=== PATIENT | male | born 1935 | race Caucasian/White ===

== ENCOUNTER 2018-03-02 13:07 | Emergency (ER) | payer OTHER ==
[~2018-03-02] VITALS: Ht 182.9 cm; Wt 106.0 kg
[~2018-03-02 13:07] MED LIST: AMLO-110 PO; ASPI-319 PO; ATV1 PO; CLR10 PO; DIPH-416 PO; FLEC50TA20 PO; LVT/20 PO; NEOM1SOL8 OT; PSYL58.69 PO; SIMV20TA2 PO
[2018-03-02 13:10] VITALS: Ht 182.9 cm; Wt 106.0 kg
[2018-03-02] MEDS ORDERED: SODIUM CHLORIDE 0.9% 1000ML 500 ML IV STA (13:34)
--- NOTE | 2018-03-02 13:43 | EMERGENCY ROOM VISIT NOTE ---
History Report prepared by Moisés: Jesus Walters Under the Supervision of: Dr. Freeman Buchanan M.D. First contact with patient: 13:27 Chief Complaint: CARDIAC ASSESSMENT Stated Complaint: HEART ARRYTHMIA History of Present Illness The patient is an 82 year old male who presents to the Emergency Room with complaints of persistent shortness of breath, which began this morning several hours ago. The patient states that he first noticed the shortness of breath this morning when he walked up a flight of 12 steps in his house. He did not experience any chest pain. The patient notes that he does have a history of atrial fibrillation, which he has had for 15 years. He adds that he can usually feel when the heart goes into an irregular rhythm, and then can feel the rhythm resolve on its own. He did not feel this today. He had his last episode of atrial fibrillation 18 months ago. The patient has no history of blood clots, but does note that he took a 300 mile car trip to [place] last weekend. He denies any recent cold symptoms such as cough, congestion, fevers, or vomiting. Source of History: patient Onset: This morning, several hours ago Position: chest Quality: other (SOB) Timing: other (Persistent) Modifying Factors (Worsening): exertion (walking up steps precipitated symptoms) Associated Symptoms: No fevers, No cough, No chest pain, No vomiting Review of Systems See HPI for pertinent positives & negatives. A total of 10 systems reviewed and were otherwise negative. Past Medical & Surgical Medical Problems: (1) Atrial fibrillation Atrial fibrillation Family History Omitted secondary to patient age. Social History Smoking Status: Former Smoker Drug Use: none Marital Status: Housing Status: lives with significant other Current/Historical Medications Scheduled Acetaminophen (Tylenol), 650 MG PO HS Amlodipine (Norvasc), 5 MG PO HS Apixaban (Eliquis), 5 MG PO BID Aspirin Enteric Coated (Ecotrin Or Generic), 81 MG PO HS Desonide (Desonide), 1 APPLN TOP BID Flecainide (Tambocor), 50 MG PO BID Lorazepam (Ativan *), 1 MG PO HS PRN Jkjbtwkm-Iimeqscgd-Wl (Otic) (Antibiotic Ear), 3-4 DROP OT QAM Simvastatin (Zocor), 20 MG PO QPM Scheduled PRN Diphenoxylate/Atropine (Lomotil), 2 TAB PO DAILY PRN for Diarrhea Psyllium (Metamucil Powder), 1 PACK PO DAILY PRN Allergies Coded Allergies: No Known Allergies (Verified , 03/02/18) Physical Exam Vital Signs Date Time Temp Pulse Resp B/P (MAP) Pulse Ox O2 Delivery O2 Flow Rate FiO2 03/02/18 18:30 36.4 94 24 133/65 94 03/02/18 17:50 86 03/02/18 15:45 75 21 110/67 94 03/02/18 14:34 95 Room Air 03/02/18 14:08 95 Room Air 03/02/18 13:42 86 03/02/18 13:10 36.4 74 20 126/71 95 Room Air Physical Exam GENERAL: Patient is in no acute distress. HEENT: No acute trauma, normocephalic atraumatic, mucous membranes moist, no nasal congestion, no scleral icterus. NECK: No stridor, no adenopathy, no meningismus, trachea is midline. LUNGS: Clear to auscultation bilaterally, no wheeze, no rhonchi, breath sounds equal. HEART: Irregular rhythm with a normal rate. No murmurs. ABDOMEN: Soft, nontender, bowel sounds positive, no hernias, no peritonitis. EXTREMITIES: No cyanosis or edema, full range of motion of all the joints without pain or difficulty, no signs for acute trauma. NEUROLOGIC: Oriented x 3, no acute motor or sensory deficits, no focal weakness. SKIN: No rash, no jaundice, no diaphoresis. Medical Decision & Procedures ER Provider Diagnostic Interpretation: Radiology results as stated below per my review and radiologist interpretation: CHEST ONE VIEW PORTABLE CLINICAL HISTORY: EVALUATE ALTERED MENTAL STATUS/WEAKNESS dyspnea COMPARISON STUDY: 02/17/2013 FINDINGS: Moderate cardiomegaly. Prominent pulmonary vasculature. Slight blunting right lateral gastric angle. IMPRESSION: Mild congestive heart failure The above report was generated using voice recognition software. It may contain grammatical, syntax or spelling errors. Electronically signed by: Myles Albrecht M.D. 03/02/2018 2:03 PM Dictated Date/Time: 03/02/2018 2:00 PM Laboratory Results 03/02/18 13:40 Red Blood Count 4.48, Mean Corpuscular Volume 94.9, Mean Corpuscular Hemoglobin 34.6, Mean Corpuscular Hemoglobin Concent 36.5, Mean Platelet Volume 11.1, Neutrophils (%) (Auto) 74.1, Lymphocytes (%) (Auto) 15.2, Monocytes (%) (Auto) 10.0, Eosinophils (%) (Auto) 0.2, Basophils (%) (Auto) 0.2, Neutrophils # (Auto ) 6.40, Lymphocytes # (Auto) 1.32, Monocytes # (Auto) 0.87, Eosinophils # (Auto ) 0.02, Basophils # (Auto) 0.02 03/02/18 13:40 Test 03/02/18 13:40 03/02/18 13:51 03/02/18 14:30 White Blood Count 8.66 K/uL (4.8-10.8) Red Blood Count 4.48 M/uL (4.7-6.1) Hemoglobin 15.5 g/dL (14.0-18.0) Hematocrit 42.5 % (42-52) Mean Corpuscular Volume 94.9 fL (80-100) Mean Corpuscular Hemoglobin 34.6 pg (25-34) Mean Corpuscular Hemoglobin Concent 36.5 g/dl (32-36) Platelet Count 210 K/uL (130-400) Mean Platelet Volume 11.1 fL (7.4-10.4) Neutrophils (%) (Auto) 74.1 % Lymphocytes (%) (Auto) 15.2 % Monocytes (%) (Auto) 10.0 % Eosinophils (%) (Auto) 0.2 % Basophils (%) (Auto) 0.2 % Neutrophils # (Auto) 6.40 K/uL (1.4-6.5) Lymphocytes # (Auto) 1.32 K/uL (1.2-3.4) Monocytes # (Auto) 0.87 K/uL (0.11-0.59) Eosinophils # (Auto) 0.02 K/uL (0-0.5) Basophils # (Auto) 0.02 K/uL (0-0.2) RDW Standard Deviation 43.4 fL (36.4-46.3) RDW Coefficient of Variation 12.7 % (11.5-14.5) Immature Granulocyte % (Auto) 0.3 % Immature Granulocyte # (Auto) 0.03 K/uL (0.00-0.02) Prothrombin Time 10.5 SECONDS (9.0-12.0) Prothromb Time International Ratio 1.0 (0.9-1.1) Activated Partial Thromboplast Time 27.6 SECONDS (21.0-31.0) Partial Thromboplastin Ratio 1.1 Anion Gap 9.0 mmol/L (3-11) Est Creatinine Clear Calc Drug Dose 64.5 ml/min Estimated GFR () 69.3 Estimated GFR (Non- 59.8 BUN/Creatinine Ratio 15.8 (10-20) Calcium Level 8.8 mg/dl (8.5-10.1) Magnesium Level 2.2 mg/dl (1.8-2.4) Total Bilirubin 0.7 mg/dl (0.2-1) Aspartate Amino Transf (AST/SGOT) 23 U/L (15-37) Alanine Aminotransferase (ALT/SGPT) 33 U/L (12-78) Alkaline Phosphatase 108 U/L (45-117) Troponin I < 0.015 ng/ml (0-0.045) Total Protein 7.7 gm/dl (6.4-8.2) Albumin 3.3 gm/dl (3.4-5.0) Globulin 4.4 gm/dl (2.5-4.0) Albumin/Globulin Ratio 0.8 (0.9-2) Thyroid Stimulating Hormone (TSH) 1.440 uIu/ml (0.300-4.500) Bedside D-Dimer 298 ng/mlFEU (0-450) Urine Color DK YELLOW Urine Appearance CLEAR (CLEAR) Urine pH 5.5 (4.5-7.5) Urine Specific [place] 1.018 (1.000-1.030) Urine Protein 1+ (NEG) Urine Glucose (UA) NEG (NEG) Urine Ketones TRACE (NEG) Urine Occult Blood NEG (NEG) Urine Nitrite NEG (NEG) Urine Bilirubin NEG (NEG) Urine Urobilinogen NEG (NEG) Urine Leukocyte Esterase SMALL (NEG) Urine WBC (Auto) 10-30 /hpf (0-5) Urine RBC (Auto) 0-4 /hpf (0-4) Urine Hyaline Casts (Auto) 10-30 /lpf (0-5) Urine Epithelial Cells (Auto) >30 /lpf (0-5) Urine Bacteria (Auto) NEG (NEG) Urine Renal Epithelial Cells 5-10 /lpf (0-5) Urine Mucus PRESENT (NONE PRSENT) Laboratory results reviewed by me. Medications Administered Medications (Trade) Dose Ordered Sig/Micheal Route Start Time Stop Time Status Last Admin Dose Admin Sodium Chloride 500 ml @ 999 mls/hr Q31M STAT IV 03/02/18 13:34 03/02/18 14:04 DC 03/02/18 14:00 999 MLS/HR Flecainide Acetate (Tambocor Tab) 150 mg NOW STAT PO 03/02/18 15:40 03/02/18 15:41 DC 03/02/18 16:04 150 MG Apixaban (Eliquis Tab) 5 mg NOW STAT PO 03/02/18 17:48 03/02/18 17:50 DC 03/02/18 18:14 5 MG ECG Per My Interpretation Indication: SOB/dyspnea Rate (beats per minute): 97 Rhythm: atrial fibrillation Findings: other (LVH present, No MARU) ED Course 1333: The patient was evaluated in room B9. A complete history and physical exam was performed. 1334: Ordered Sodium Chloride 500 mL @ 999 mL/hr IV. 1527: I updated the patient on the findings of his case at this time. 1537: I discussed the case with Dr. Curtis - Cardiology. He suggests giving the patient 150 mg of Flecainide orally, to see if his rhythm converts within 1 hour. If he converts, the patient may go home with cardiovascular follow-up. If he does not convert, then he should be started on ELIQUIS and he can then be sent home. 1540: Ordered Flecainide Acetate 150 mg PO. 1543: I updated the patient about the consult with Dr. Curtis. He is in agreement with the plan. 1713: It has been an hour since the patient had the Flecainide. He has NOT converted back to sinus rhythm at this time. He would like to wait another 30 minutes, because he does not want to have to take ELIQUIS. 1745: I checked on the patient at this time. Reevaluated the patient. Discussed results and discharge instructions: He will take a dosage of Eliquis. He verbalized understanding and agreement. The patient is ready for discharge. Medical Decision Differential Diagnosis includes; Atria fibrillation, atrial flutter, anemia, electrolyte imbalance, dehydration, renal failure, pulmonary embolism, pneumonia , and heart failure. There is no leukocytosis or concerning anemia. No significant electrolyte abnormality, kidney failure or hepatitis. The patient appears to be in a euthyroid state. EKG shows A. fib with LVH, the rate is controlled. Cardiac enzyme testing 1 is not consistent with acute cardiac injury. Chest film shows some possible mild CHF versus stable chronic findings, no pneumonia or pneumothorax. D-dimer testing returned negative. With a negative d-dimer and my low suspicion for PE, I will stop the workup for this diagnosis. I spoke with cardiology. They recommended a dose of oral flecainide. The patient was given 150 mg orally. He was watched for about another 2 hours and remained in A. fib. He remained stable. Cardiology recommended the patient be discharged on Eliquis. He was given a 5 mg dose here prior to discharge. He was given a prescription. He will be seeing cardiology tomorrow in the office for a recheck of his heart rhythm. If worsening, he can return. Medication Reconcilliation Current Medication List: was personally reviewed by me Blood Pressure Screening Patient's blood pressure: Normal blood pressure Consults Time Called: 1524 Consulting Physician: Dr. Curtis - Cardiology Returned Call: [phone] I discussed the case with Dr. Ever Oliver Cardiology. He suggests giving the patient 150 mg of Flecainide orally, to see if his rhythm converts within 1 hour. If he converts, the patient may go home with cardiovascular follow-up. If he does not convert, then he should be started on ELIQUIS and he can then be sent home. Impression Primary Impression: Atrial fibrillation Additional Impression: SOB (shortness of breath) Critical Care I have personally spent greater than 40 minutes of critical care time in the direct management of this patient. This includes bedside care, interpretation of diagnostic studies, and testing, discussion with consultants, patient, and family members, and other required patient management activities. This 40 minutes is in excess of all separately billable procedures. Scribe Attestation The scribe's documentation has been prepared under my direction and personally reviewed by me in its entirety. I confirm that the note above accurately reflects all work, treatment, procedures, and medical decision making performed by me. Departure Information Dispostion Home / Self-Care Prescriptions Apixaban (ELIQUIS) 5 Mg Tab 5 MG PO BID for 7 Days, #14 TAB Prov: Freeman Buchanan M.D. 03/02/18 Referrals Joseph Carrasquillo D.O. (PCP) Forms IMPORTANT VISIT INFORMATION Patient Instructions My [facility] Additional Instructions no flecanide tonight--start again tomorrow though start Eliquis 2x per day for now--next dose tomorrow am see cardiology tomorrow--call in the am for an appt return for worsening symptoms, worsening shortness of breath or chest pain no evidence for a blood clot today or for any heart attack Problem Qualifiers
[2018-03-02 13:57] LABS: BASO % 0.2 %; BASO ABS # 0.02 K/uL (0-0.2); EOS % 0.2 %; EOS ABS # 0.02 K/uL (0-0.5); HEMATOCRIT 42.5 % (42-52); HEMOGLOBIN 15.5 g/dL (14.0-18.0); IG# 0.03 K/uL (0.00-0.02); LYMPH % 15.2 %; LYMPH ABS # 1.32 K/uL (1.2-3.4); MEAN CELL VOLUME 94.9 fL (80-100); MEAN CORPUSCULAR HEMOGLOBIN 34.6 pg (25-34); MEAN CORPUSCULAR HGB CONC 36.5 g/dl (32-36); MEAN PLATELET VOLUME 11.1 fL (7.4-10.4); MONO ABS # 0.87 K/uL (0.11-0.59); NEUT % 74.1 %; PLATELET COUNT 210 K/uL (130-400); RED CELL DISTRIBUTION WIDTH CV 12.7 % (11.5-14.5); RED CELL DISTRIBUTION WIDTH SD 43.4 fL (36.4-46.3); WHITE BLOOD COUNT 8.66 K/uL (4.8-10.8)
--- NOTE | 2018-03-02 14:04 | DIAGNOSTIC IMAGING REPORT ---
CHEST ONE VIEW PORTABLE CLINICAL HISTORY: EVALUATE ALTERED MENTAL STATUS/WEAKNESS dyspnea COMPARISON STUDY: 02/17/2013 FINDINGS: Moderate cardiomegaly. Prominent pulmonary vasculature. Slight blunting right lateral gastric angle. IMPRESSION: Mild congestive heart failure The above report was generated using voice recognition software. It may contain grammatical, syntax or spelling errors. Electronically signed by: Myles Albrecht M.D. 03/02/2018 2:03 PM Dictated Date/Time: 03/02/2018 2:00 PM
[2018-03-02] MEDS ORDERED: ACET-1311 PO (14:06)
[2018-03-02] MEDS ORDERED: DESO0.0516 TOP (14:06)
[2018-03-02 14:13] LABS: PTT PATIENT 27.6 SECONDS (21.0-31.0)
[2018-03-02 14:22] LABS: ALBUMIN 3.3 gm/dl (3.4-5.0); ALKALINE PHOSPHATASE 108 U/L (45-117); ALT/SGPT 33 U/L (12-78); AST/SGOT 23 U/L (15-37); BLOOD UREA NITROGEN 18 mg/dl (7-18); CALCIUM 8.8 mg/dl (8.5-10.1); CARBON DIOXIDE 20 mmol/L (21-32); CREATININE 1.15 mg/dl (0.60-1.40); GLUCOSE 101 mg/dl (70-99); POTASSIUM 4.3 mmol/L (3.5-5.1); SODIUM 137 mmol/L (136-145); TOTAL PROTEIN 7.7 gm/dl (6.4-8.2)
[2018-03-02 14:34] VITALS: O2SAT 95
[2018-03-02] MEDS ORDERED: FLECAINIDE ACETATE 100 MG TAB PO STA (15:40)
[2018-03-02] MEDS ORDERED: APIXABAN 2.5 MG TAB PO STA (17:48)
[2018-03-02] MEDS ORDERED: APIX1TAB3 PO (17:52)
[2018-03-02 18:30] VITALS: BP 133/65; PULSE 94; TEMP 36.4; O2SAT 94
== END 2018-03-02 18:31 | disposition home or self-care (01) ==
LOC: C.EDB 13:08
DX: I48.91 Unspecified atrial fibrillation (principal); R06.02 Shortness of breath; Z87.891 Personal history of nicotine dependence; Z79.01 Long term (current) use of anticoagulants; Z79.899 Other long term (current) drug therapy

== ENCOUNTER → 2018-03-22 | Outpatient (CLI) | payer OTHER ==
[~2018-03-22] MED LIST changes: +ACET-1311 PO; -CLR10 PO; +DESO0.0516 TOP; +GADAVIST IV PRN; -LVT/20 PO
--- NOTE | 2018-03-22 15:36 | DIAGNOSTIC IMAGING REPORT ---
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 FINDINGS: Large [id number] individual small group instructor localizer images demonstrate no gross abnormality. There is no restricted diffusion to suggest acute or subacute infarction. Midline structures including the corpus callosum, brainstem, optic chiasm, pituitary and pineal glands appear unremarkable the sagittal T1 series. No cerebellar tonsillar herniation. Degenerative changes of the imaged cervical spine are noted. Moderate brain atrophy and ex vacuo ventriculomegaly without acute intracranial hemorrhage, midline shift, abnormal extra-axial collections, hydrocephalus or intracranial mass. Scattered foci of increased T2/FLAIR signal noted within the periventricular and subcortical white matter suggesting chronic microvascular ischemic changes. Major flow voids at the level of the skull base appear patent. Mastoid air cells are clear. Paranasal sinuses are also generally clear. There is thinning of the optic lenses bilaterally. Soft tissues and skull are within normal limits. Cisternal portions of the bilateral 5th nerves are within normal limits. 7th and 8th cranial nerves are within normal limits. Vascular loop of the left anterior inferior cerebellar artery extends approximately 50% into the left internal auditory canal, image 45 series 9 with minimal angulation of the adjacent 8th cranial nerve. No mass lesions identified within the cerebellar pontine angle or internal auditory canals. There is no abnormal intra-axial or extra-axial enhancement identified. IMPRESSION: 1. No acute intracranial abnormality identified. 2. Vascular loop of the left anterior inferior cerebellar artery extends approximately 50% into the left internal auditory canal. This finding has been reported to cause pulsatile tinnitus. Bilateral internal auditory canals are otherwise unremarkable without focal mass identified. 3. Atrophy with ex vacuo ventriculomegaly and chronic microvascular ischemic changes. The above report was generated using voice recognition software. It may contain grammatical, syntax or spelling errors. Electronically signed by: Cole Robertson M.D. 03/22/2018 3:35 PM Dictated Date/Time: 03/22/2018 3:23 PM
== END | disposition home or self-care (01) ==
LOC: C.MRI 13:33
PROVIDERS: ATTEND Physician Assistant
DX: H53.19 Other subjective visual disturbances (principal); H90.42 Sensorineural hearing loss, unilateral, left ear, with unrestricted hearing on the contralateral side

== ENCOUNTER 2020-10-30 16:25 | Observation (INO) ==
--- OUTSIDE RECORDS SUMMARY | 2020-10-30 16:27 | External Medical Summary | Continuity of Care Document ---
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) History of basal cell carcinoma (V10.83) (Z85.828) Dermatitis, seborrheic (690.10) (L21.9) Seborrheic dermatitis (690.10) (L21.9) H/O malignant neoplasm of skin (V10.83) (Z85.828) BCC (basal cell carcinoma) (173.91) (C44.91) 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) Seborrheic keratosis (702.19) (L82.1) SCC (squamous cell carcinoma) (173.92) (C44.92) Arthritis (716.90) (M19.90) Hyperlipidemia (272.4) (E78.5) Urinary incontinence (788.30) (R32) Gross hematuria (599.71) (R31.0) 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 REBEL Fleming Start: 07-Feb-2013 Refills: 0 Ketoconazole 2 % External Shampoo; APPLY DIRECTED A S NEEDED Susan Dozier Start: 13-Jul-2016 Quantity: 1 120 ML Bottle Refills: 6 Desonide 0.05 % External Ointment; APPLY SPARINGLY TO AFFECTED AREA(S) TWICE DAILY Susan Dozier 60 GM Tube Quantity: 1 Refills: 0 Ketoconazole 2 % External Shampoo; USE 2X/WEEK Dannielle Dozier 120 ML Bottle Quantity: 3 Refills: 3 Neomycin/Polymixin/Dexameth SUSP; prn , M.D. Refills: 0 Simvastatin 20 MG Oral Tablet; TAKE 1 TABLET DAILY. , M.D. Refills: 0 Lomotil 2.5-0.025 MG Oral Tablet; Take 1 tablet twice daily , M.D. Refills: 0 Ativan 1 MG Oral Tablet; TAKE 1 TABLET PRN REBEL Fleming Start: 07-Feb-2013 Refills: 0 amLODIPine Besylate 5 MG Oral Tablet; TAKE 1 TABLET DAILY. , M.D. Refills: 0 Aspirin 81 MG TABS; TAKE 1 TABLET DAILY. , M.D. Refills: 0 Tylenol 325 MG Oral Tablet , M.D. Refills: 0 Metamucil CAPS , M.D. Refills: 0 Procedures History of Radiation Therapy Status: Com pleted History of Insertion Of Antonina Capsules For Clinical Status: Completed Brachytherapy History of Transurethral Resection Of Prostate (TURP) Status: Completed History of Partial Colectomy Status: Com pleted History of Cataract Surgery Status: Comp leted History of Treatment Of Fracture Of The Humerus Status: Completed History of Nasal Septal Deviation Repair Status: Completed Immunizations Immunizations not documented Family History Unknown Family Member Family history of Prostate Cancer (V16.42) Status: Active Comments: Family History Family history of Hypertension (V17.49) Status: Active Comments: Family History Family history of cerebrovascular accident Status: Active Comments: Family History (CVA) (V17.1) (Z82.3) Social History - Smoking Status Ex-smoker Plan of Treatment Planned Observations Planned Goals not documented Results No Known Results Results not documented
--- OUTSIDE RECORDS SUMMARY | 2020-10-30 16:27 | External Medical Summary | Continuity of Care Document ---
:1935 Author Name Lizabeth Davis Address Unavailable Unavailable , Care Team Providers Name Role Phone Unavailable Unavailable Unavailable Bernadette LUQUE Unavailable [email or web address] Jacoby Davis Unavailable 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) BCC (basal cell carcinoma) (173.91) (C44.91) H/O malignant neoplasm of skin (V10.83) (Z85.828) Seborrheic dermatitis (690.10) (L21.9) Dermatitis, seborrheic (690.10) (L21.9) Neoplasm of uncertain behavior of skin (238.2) (D48.5) Actinic keratosis (702.0) (L57.0) History of SCC (squamous cell carcinoma) of skin (V10.83) (Z 85.828) History of basal cell carcinoma (V10.83) (Z85.828) Balance disorder (781.99) (R26.89) 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 , M.D. Refills: 0 amLODIPine Besylate 5 MG Oral Tablet; TAKE 1 TABLET DAILY. , M.D. Refills: 0 Ativan 1 MG Oral Tablet; TAKE 1 TABLET PRN REBEL Fleming Start: 07-Feb-2013 Refills: 0 Flecainide Acetate 50 MG Oral Tablet; TAKE 1 TABLET EV BLANCHE 12 HOURS DAILY. REBEL Fleming Start: 07-Feb-2013 Refills: 0 Lomotil 2.5-0.025 MG Oral Tablet; Take 1 tablet twice daily , M.D. Refills: 0 Simvastatin 20 MG Oral Tablet; TAKE 1 TABLET DAILY. , M.D. Refills: 0 Neomycin/Polymixin/Dexameth SUSP; prn , M.D. Refills: 0 Ketoconazole 2 % External Shampoo; USE 2X/WEEK Dannielle Doizer 120 ML Bottle Quantity: 3 Refills: 3 Desonide 0.05 % External Ointment; APPLY SPARINGLY TO AFFECTED AREA(S) TWICE DAILY Susan Dozier 60 GM Tube Quantity: 1 Refills: 0 Ketoconazole 2 % External Shampoo; APPLY DIRECTED A S NEEDED Susan Dozier Start: 13-Jul-2016 Quantity: 1 120 ML Bottle Refills: 6 Metamucil CAPS , M.D. Refills: 0 Tylenol 325 MG Oral Tablet , M.D. Refills: 0 Procedures History of [...]
[2020-10-30] MEDS ORDERED: MoRPHine SULFATE 4 MG/ML 1 ML CARP\\VIAL IV STA (17:10)
[2020-10-30] MEDS ORDERED: ONDANSETRON INJ 2 MG/ML 2 ML VIAL IV STA (17:10)
[2020-10-30] MEDS ORDERED: VANCOMYCIN CONSULT ACTIVE PRN ×2 (17:11→21:18)
[2020-10-30] MEDS ORDERED: VANCOMYCIN HCL 2,250 MG in SODIUM CHLORIDE 0.9% 500 ML IV ONE (17:11)
[2020-10-30] MEDS ORDERED: cefTRIAXone SODIUM 2,000 MG/70 ML BAG IV STA (17:11)
[2020-10-30] MEDS ORDERED: MoRPHine SULFATE 2 MG/ML CARP ONE (17:35)
[2020-10-30 18:04] LABS: Eosinophils # (auto) 0.17 K/uL (0-0.5); Eosinophils % (auto) 3.6 %; Hematocrit (blood only) 41.6 % (42-52); Hemoglobin 14.2 g/dL (14.0-18.0); Immature Granulocytes # (auto) 0.02 K/uL (0.00-0.02); Immature Granulocytes % (auto) 0.4 %; Mean Corpuscular Hemoglobin 33.2 pg (25-34); Mean Corpuscular Hgb Conc 34.1 g/dL (32-36); Mean Corpuscular Volume 97.2 fL (80-100); Mean Platelet Volume 10.6 fL (7.4-10.4); Monocytes # (auto) 0.49 K/uL (0.11-0.59); Monocytes % (auto) 10.4 %; Neutrophils # (auto) 2.43 K/uL (1.4-6.5); Neutrophils % (auto) 51.6 %; Platelet Count 194 K/uL (130-400); RDW Standard Deviation 45.8 fL (36.4-46.3); Red Blood Count 4.28 M/uL (4.7-6.1); White Blood Count 4.71 K/uL (4.8-10.8)
[2020-10-30 18:16] LABS: Appearance Urine Clear (Clear); Bilirubin Urine Negative (Negative); Blood Urine Negative (Negative); Color Urine Yellow; Glucose Urine UA Negative (Negative); Ketones Urine Negative (Negative); Leukocyte Esterase Urine Negative (Negative); Nitrite Urine Negative (Negative); Protein Urine Negative (Negative); Specific Gravity Urine 1.018 (1.000-1.030); Urobilinogen Urine Negative (Negative)
[2020-10-30 18:20] LABS: Albumin Level 3.4 gm/dl (3.4-5.0); C Reactive Protein 0.36 mg/dl (0-0.29); Calcium 9.2 mg/dl (8.5-10.1); Creatinine Clr Calc Pharmacy 68.3 ml/min; Est GFR (African American) 74.9; Est GFR (Non-African American) 64.6; Potassium 4.1 mmol/L (3.5-5.1)
[2020-10-30 18:22] LABS: Albumin Globulin Ratio 0.9 (0.9-2); Bilirubin,Total 0.5 mg/dl (0.2-1); Globulin 3.8 gm/dl (2.5-4.0); Total Protein 7.2 gm/dl (6.4-8.2)
--- NOTE | 2020-10-30 20:35 | History & Physical Report ---
Date of Service October 30, 2020 Assessment & Plan (1) Discitis of lumbar region: -Admit to [facility] -Patient referred to ED by PCP after outpatient MRI showed evidence of L1-L2 discitis -Afebrile, WBC 4.7K, CRP 0.36, ESR 14 -S/p IV ceftriaxone and IV Vanco in ED, will continue with -Follow blood cultures -Spine Ortho consult -notified by ED (2) Paroxysmal atrial fibrillation: -Rhythm controlled on flecainide, will continue -Not anticoagulated secondary to rectal bleeding and hematuria (3) Hypertension: -BP controlled, continue amlodipine and losartan (4) DVT prophylaxis: -SCDs due to possible surgical intervention History of Present Illness Chief Complaint: Referred by PCP for abnormal MRI Primary Care Provider: Joseph Carrasquillo DO 85-year-old male with PMH dyslipidemia, HTN, paroxysmal atrial fibrillation, history of prostate cancer, history of colon cancer, scalp stenosis, and other problems listed below who presents to the ED by referral PCP for evaluation of abnormal MRI. Patient reports a longstanding history of spinal stenosis with chronic right leg radiculopathy. Over the past few weeks, patient reports developing left thigh pain. Reports pain was initially sharp with ambulation however has now developed into a dull pain with ambulation. Reports chronic problems with balance as well however denies any numbness or tingling to lower extremities. Denies loss of bowel or bladder function. Patient reported the symptoms to PCP and outpatient MRI was ordered for today. No fevers or chills. Denies chest pain or shortness of breath. No lightheadedness, dizziness, diaphoresis, syncopal events. No urinary symptoms. Outpatient MRI showed findings of L1-L2 discitis with associated myositis. In the ED, patient is hemodynamically stable. He is afebrile, WBC 4.7K, CRP 0.36, ESR 14. Patient was given IV ceftriaxone, IV Vanco, IV Zofran, IV morphine. Allergies Allergy/AdvReac Type Severity Reaction Status Date / Time gabapentin Allergy Unknown Unknown Verified 10/30/20 19:12 apixaban AdvReac Unknown Hematuria Verified 10/30/20 19:12 lisinopril AdvReac Unknown Tachycardia Verified 10/30/20 19:12 Home Medications Medication Instructions Recorded Confirmed Type amlodipine 5 mg PO HS 07/08/18 10/30/20 History aspirin [Aspirin Low Dose] 81 mg PO DAILY 07/08/18 10/30/20 History desonide 1 applic TOPICAL DIRECTED PRN 07/08/18 10/30/20 History ketoconazole 1 applic TOPICAL 2XWK 07/08/18 10/30/20 History lorazepam 1 mg PO HS PRN 07/08/18 10/30/20 History losartan 25 mg PO HS 07/08/18 10/30/20 History eojtmabx-dnqpxkvlj-OZ 2 drp OTB DAILY PRN 07/08/18 10/30/20 History psyllium husk [Metamucil] 1 tsp PO DAILY PRN 07/08/18 10/30/20 History simvastatin 20 mg PO HS 07/08/18 10/30/20 History acetaminophen 650 mg PO QID PRN 10/30/20 10/30/20 History flecainide 100 mg PO Q12H 10/30/20 10/30/20 History melatonin 10 mg PO HS 10/30/20 10/30/20 History Past Med/Surg History Medical History Dyslipidemia History of colon cancer History of prostate cancer Hypertension Paroxysmal atrial fibrillation Spinal stenosis Surgical History History of partial colectomy History of transurethral resection of prostate Family History Brother Prostate cancer Social History Smoking Status: Former smoker Second Hand Exposure: No; Do You Dip or Chew Tobacco: No; Tobacco Cessation Education Requested by Patient: No Hx Alcohol Use: Yes Alcohol type: beer and wine Alcohol Intake Frequency: Mo nthly or Less Hx Substance Use: No Preferred Language: Botswanan Communication Ability: Effective Morgue Technician Required: No Beliefs That Will Affect Care: None Current Living Situation: Spouse Other Information That Helps Us Care for You: No Feels Safe at Home: Yes Safety Concerns: Feels Safe At This Time Assistive Devices: Cane Review of Systems Review of Systems: ROS per HPI, all other systems reviewed and negative Physical Exam Constitutional: WD/WN, vitals as above Eyes: PERRL, conjunctivae normal, anicteric sclerae ENMT: external ear and nose normal, oropharynx normal Respiratory: normal respiratory effort, lungs clear to auscultation Cardiovascular: Rate/Rhythm: regular rate and regular rhythm Vessels: normal peripheral pulses Extremities: no edema Gastrointestinal (Abdomen): normal bowel sounds, soft, nontender, no hepatosplenomegaly Musculoskeletal: no cyanosis or clubbing, extremities motor strength 5/5 Left thigh pain with elevation of LLE Skin: no rashes, warm and dry Neurologic: PERRL, EOMI, accommodation nl, no face palsy, no dysarthria Psychiatric: A+Ox3, euthymic affect Results & Data Results & Data ([facility]) Vital Signs (Past 12 Hours) Vital Signs Temp Pulse Pulse Resp BP BP Pulse Ox 10/30/20 19:24 73 18 147/93 H 96 10/30/20 18:06 67 18 138/81 96 10/30/20 16:31 36.6 C 69 18 147/54 H 94 Laboratory Results Short CBC 10/30/20 Range/Units 17:49 WBC 4.71 L (4.8-10.8) K/uL Hgb 14.2 (14.0-18.0) g/dL Hct 41.6 L (42-52) % Plt Count 194 (130-400) K/uL BMP 10/30/20 17:49 Sodium 141 Potassium 4.1 Chloride 108 H Carbon Dioxide 26 BUN 20 H Creatinine 1.06 Glucose 92 Calcium 9.2 Liver Function 10/30/20 Range/Units 17:49 Total Bilirubin 0.5 (0.2-1) mg/dl AST 16 (15-37) U/L ALT 30 (12-78) U/L Alkaline Phosphatase 115 (45-117) U/L Albumin 3.4 (3.4-5.0) gm/dl Urine 10/30/20 Range/Units 18:08 Urine Color Yellow Urine Appearance Clear (Clear) Urine pH 6.0 (4.5-7.5) Ur Specific [place] 1.018 (1.000-1.030) Urine Protein Negative (Negative) Urine Glucose (UA) Negative (Negative) Diagnostic Findings LUMBAR SPINE MRI PERFORMED AT 611 IMAGING 10/30/2020: Increased signal and enhancement within the anterior aspect of the L1-L2 disc space suspicious for discitis. No associated endplate signal abnormality to indicate superimposed osteomyelitis. Increased signal and enhancement in the medial aspect of the left psoas muscle extending from the L1-L2 disc space to the lumbosacral junction compatible with myositis. No intramuscular abscess at this time. Severe multilevel degenerative changes. Code Status & VTE Plan VTE Prophylaxis Plan VTE Prophylaxis will be ordered: Yes Supervising Physician Co-Signing Physician Notes Pt seen and examined by me, care coordinated with XOCHILT Christianson, pls refer to her note above for further detail. Pt is an 85 y/o male with dyslipidemia, HTN, paroxysmal atrial fibrillation, h istory of prostate cancer, history of colon cancer, who presents to the ED by referral PCP for evaluation of abnormal MRI. Patient reports a longstanding history of spinal stenosis with chronic right leg radiculopathy. Over the past few weeks, patient reports developing left thigh pain. Reports pain was initially sharp with ambulation however has now developed into a dull pain with ambulation. Reports chronic problems with balance as well however denies any numbness or tingling to lower extremities. Denies loss of bowel or bladder function. Patient reported the symptoms to PCP and outpatient MRI was ordered for today. No fevers or chills. Denies chest pain or shortness of breath. No lightheadedness, dizziness, diaphoresis, syncopal events. No urinary symptoms. Outpatient MRI showed findings of L1-L2 discitis with associated myositis. WBC 4.7K, CRP 0.36, ESR 14. Patient was given IV ceftriaxone, IV Vanco, IV Zofran, IV morphine. Currently pt is sitting up in bed in [facility]. He is alert and oriented and answering questions appropriately. He is breathing comfortably on room air, lungs are clear to auscultation. Heart sounds seem regular. No LE edema. Abdomen is soft, nontender nondistended, + bowel sounds. Back - spinal tenderness on palpation in lumbar region, no paraspinal tenderness appreciated. + lumbar back pain with LLE movement. Skin is warm, dry, well perfused. Patient was given IV ceftriaxone, IV Vanco in the ED, will continue for now. Will follow cultures. orthopedics consulted (contacted by ED provider), outpt MRI imaging uploaded. Mary Ambrosio MD
[2020-10-30] MEDS ORDERED: SIMVASTATIN 20 MG TAB PO SCH (21:18)
[2020-10-30] MEDS ORDERED: LOSARTAN POTASSIUM 25 MG TAB PO SCH (21:18)
[2020-10-30] MEDS ORDERED: amLODIPine BESYLATE 5 MG TAB PO SCH (21:18)
[2020-10-30] MEDS: FLECAINIDE ACETATE 100 MG TABLET PO SCH (22:59)
[2020-10-31] MEDS ORDERED: LORazepam 1 MG TAB PO PRN (00:25)
--- NOTE | 2020-10-31 01:34 | Emergency Department Note ---
History of Present Illness General Chief complaint: Abnormal Labs/Diagnostic Testing Stated complaint: POST MRI - SENT BY FOR INFECTION Time Seen by Provider: 10/30/20 16:49 Source: patient and RN notes reviewed Mode of arrival: ambulatory Limitations: no limitations History of Present Illness Provider complaint: Left leg radiculopathy Maximum Pain Intensity: 5 This patient is an 85-year-old male who presents emergency department after being referred by his physician, Dr. Carrasquillo. The patient has been suffering from a left leg radiculopathy recently and was sent for an MRI of his back. Patient has a chronic right leg radiculopathy as well as a remote history of both prostate and colon cancer. Patient had the MRI performed at [facility] and was contacted about a likely infection at L1-L2. He was sent in for IV antibiotics. Patient denies any recent instrumentation of his back, recent surgeries or dental cleanings. He denies any recent colonoscopy. He has not had a recent cough or fever. Home Medications Medication Instructions Recorded Confirmed Type Metamucil 1 tsp PO DAILY PRN 07/08/18 10/30/20 History amlodipine 5 mg PO HS 07/08/18 10/30/20 History aspirin [Aspirin Low Dose] 81 mg PO DAILY 07/08/18 10/30/20 History desonide 1 applic TOPICAL DIRECTED PRN 07/08/18 10/30/20 History ketoconazole 1 applic TOPICAL 2XWK 07/08/18 10/30/20 History lorazepam 1 mg PO HS PRN 07/08/18 10/30/20 History losartan 25 mg PO HS 07/08/18 10/30/20 History layvbumn-olvstadwq-QL 2 drp OTB DAILY PRN 07/08/18 10/30/20 History simvastatin 20 mg PO HS 07/08/18 10/30/20 History acetaminophen 650 mg PO QID PRN 10/30/20 10/30/20 History flecainide 100 mg PO Q12H 10/30/20 10/30/20 History melatonin 10 mg PO HS 10/30/20 10/30/20 History Allergies Allergy/AdvReac Type Severity Reaction Status Date / Time gabapentin Allergy Unknown Unknown Verified 10/30/20 19:12 apixaban AdvReac Unknown Hematuria Verified 10/30/20 19:12 lisinopril AdvReac Unknown Tachycardia Verified 10/30/20 19:12 Past Med/Surg History Medical History Dyslipidemia History of colon cancer History of prostate cancer Hypertension Paroxysmal atrial fibrillation Spinal stenosis Surgical History History of partial colectomy History of transurethral resection of prostate Family History Brother Prostate cancer Social History Smoking Status: Former smoker Second Hand Exposure: No; Do You Dip or Chew Tobacco: No; Tobacco Cessation Education Requested by Patient: No Hx Alcohol Use: Yes Alcohol type: beer and wine Alcohol Intake Frequency: Monthly or Less Hx Substance Use: No Preferred Language: [place] Islander Communication Ability: Effective Shelter Case Manager Required: No Beliefs That Will Affect Care: None Current Living Situation: Spouse Other Information That Helps Us Care for You: No Feels Safe at Home: Yes Safety Concerns: Feels Safe At This Time Assistive Devices: Glasses Review of Systems See HPI for pertinent positives & negatives. and A total of 10 systems reviewed and were otherwise negative Physical Exam Vital Signs Vital Signs - 24 hr 10/30/20 16:31 10/30/20 18:06 10/30/20 19:24 Temperature 36.6 C Temperature Source Oral Pulse Rate 69 Pulse Rate [Finger] 67 73 Respiratory Rate 18 18 18 Respiratory Effort / Characteristics Non-Labored Spontaneous Non-Labored Spontaneous Respiratory Depth Normal Normal Blood Pressure 147/54 H Blood Pressure [Right Arm] 138/81 147/93 H Blood Pressure Mean 85 Blood Pressure Mean [Right Arm] 100 111 Blood Pressure Position Sitting Pulse Oximetry 94 96 96 Oxygen Delivery Method Room Air Room Air Room Air Sepsis Recent Fever Within 48 Hours No Sepsis New/Unexplained Change in Mental Status No Sepsis Action Taken by Nursing No Action Required Vital signs reviewed. General: Generally well-appearing 85 yo male, in no significant distress. HEENT: No scleral icterus, PERRLA, neck supple. Atraumatic. Cardiovascular: Regular rate and rhythm, no extra sounds. Pulmonary: Clear to auscultation bilaterally, normal work of breathing. Abdomen: Soft, nontender, nondistended, positive bowel sounds. Musculoskeletal: Atraumatic, no peripheral edema. Positive straight leg raise to the left greater than right lower extremity, limited secondary to discomfort. Neurologic: Patient awake alert and oriented x 3, equal strength in all 4 extremities. Skin: Warm, dry, no rash Course Administered Medications Discontinued Medications Acetaminophen (Acetaminophen 325 Mg Tab) 650 mg PO Q4H PRN PRN Reason: pain/fever Stop: 11/29/20 21:17 Last Admin: 10/31/20 07:30 Dose: 650 mg Documented by: [id number] Admin: 10/31/20 02:20 Dose: 650 mg Documented by: [id number] Amlodipine Besylate (Amlodipine Besylate 5 Mg Tab) 5 mg PO HS RHONDA Stop: 11/29/20 21:17 Last Admin: 10/30/20 22:59 Dose: 5 mg Documented by: [id number] Aspirin (Aspirin 81 Mg Ectab) 81 mg PO DAILY RHONDA Stop: 11/30/20 08:59 Last Admin: 10/31/20 07:30 Dose: 81 mg Documented by: [id number] Flecainide Acetate (Flecainide Acetate 100 Mg Tablet) 100 mg PO Q12 RHONDA Stop: 11/29/20 21:17 Last Admin: 10/31/20 05:37 Dose: 100 mg Documented by: [id number] Admin: 10/30/20 22:59 Dose: Not Given Documented by: [id number] Vancomycin HCl 2,250 mg/ (Sodium Chloride) 545 mls @ 200 mls/hr IV NOW ONE Stop: 10/30/20 19:54 Last Infusion: 10/30/20 20:54 Dose: 0 mls/hr Documented by: [id number] Admin: 10/30/20 18:04 Dose: 200 mls/hr Documented by: [id number] Ceftriaxone Sodium (Rocephin) 2,000 mg in 70 mls @ 140 mls/hr IV NOW STA Stop: 10/30/20 17:40 Last Infusion: 10/30/20 18:31 Dose: 0 mls/hr Documented by: [id number] Admin: 10/30/20 18:01 Dose: 140 mls/hr Documented by: [id number] Vancomycin HCl 1,500 mg/ (Sodium Chloride) 530 mls @ 200 mls/hr IV Q12H RHONDA Stop: 12/12/20 05:59 Last Infusion: 10/31/20 08:48 Dose: 0 mls/hr Documented by: [id number] Admin: 10/31/20 05:05 Dose: 200 mls/hr Documented by: [id number] Lorazepam (Lorazepam 1 Mg Tab) 1 mg PO HS PRN PRN Reason: Sleep Stop: 11/30/20 00:24 Last Admin: 10/31/20 02:20 Dose: 1 mg Documented by: [id number] Losartan Potassium (Losartan Potassium 25 Mg Tab) 25 mg PO HS RHONDA Stop: 11/29/20 21:17 Last Admin: 10/30/20 22:59 Dose: 25 mg Documented by: [id number] Morphine Sulfate (Morphine Sulfate 4 Mg/Ml 1 Ml Carp\Vial) 2 mg IV NOW STA Stop: 10/30/20 17:11 Last Admin: 10/30/20 17:57 Dose: Not Given Documented by: [id number] Morphine Sulfate (Morphine Sulfate 2 Mg/Ml Carp) Confirm Administered Dose 2 mg .ROUTE .STK-MED ONE Stop: 10/30/20 17:36 Last Admin: 10/30/20 17:57 Dose: 2 mg Documented by: [id number] Ondansetron HCl (Ondansetron Inj 2 Mg/Ml 2 Ml Vial) 4 mg IV NOW STA Stop: 10/30/20 17:11 Last Admin: 10/30/20 17:57 Dose: 4 mg Documented by: [id number] Simvastatin (Simvastatin 20 Mg Tab) 20 mg PO HS RHONDA Stop: 11/29/20 21:17 Last Admin: 10/30/20 23:00 Dose: 20 mg Documented by: [id number] Medical Decision Making Differential Diagnosis Musculoskeletal, disc herniation, fracture, metastatic disease, cord compression, discitis, sciatica, cauda equina, infection, aortic disease, renal colic, gastrointestinal, as well as other pathologies. Medical Records Attestation: I reviewed the patient's medical records. ([facility] records, [facility] MR results) Home Medications Current Medication List: was personally reviewed by me Laboratory Data Attestation: I reviewed the patient's lab results. Result diagrams: 10/31/20 05:42 10/31/20 05:42 Lab Results 10/30/20 10/30/20 10/30/20 Range/Units 17:49 17:49 17:49 WBC 4.71 L (4.8-10.8) K/uL RBC 4.28 L (4.7-6.1) M/uL Hgb 14.2 (14.0-18.0) g/dL Hct 41.6 L (42-52) % MCV 97.2 (80-100) fL MCH 33.2 (25-34) pg MCHC 34.1 (32-36) g/dL RDW Std Deviation 45.8 (36.4-46.3) fL RDW Coeff of Julissa 13.0 (11.5-14.5) % Plt Count 194 (130-400) K/uL MPV 10.6 H (7.4-10.4) fL Immature Gran % (Auto) 0.4 % Neut % (Auto) 51.6 % Lymph % (Auto) 34.0 % [place] % (Auto) 10.4 % Eos % (Auto) 3.6 % Baso % (Auto) 0.0 % Neut # (Auto) 2.43 (1.4-6.5) K/uL Lymph # (Auto) 1.60 (1.2-3.4) K/uL [place] # (Auto) 0.49 (0.11-0.59) K/uL Eos # (Auto) 0.17 (0-0.5) K/uL Baso # (Auto) 0.00 (0-0.2) K/uL Immature Gran # (Auto) 0.02 (0.00-0.02) K/uL ESR 14 (0-14) mm/hr Sodium 141 (136-145) mmol/L Potassium 4.1 (3.5-5.1) mmol/L Chloride 108 H (98-107) mmol/L Carbon Dioxide 26 (21-32) mmol/L Anion Gap 7.0 (3-11) BUN 20 H (7-18) mg/dl Creatinine 1.06 (0.6-1.4) mg/dl Est Cr Clr Drug Dosing 68.3 ml/min Est GFR ( Amer) 74.9 Est GFR (Non-Af Amer) 64.6 BUN/Creatinine Ratio 19.0 (10-20) Glucose 92 (70-99) mg/dl Calcium 9.2 (8.5-10.1) mg/dl Total Bilirubin 0.5 (0.2-1) mg/dl AST 16 (15-37) U/L ALT 30 (12-78) U/L Alkaline Phosphatase 115 (45-117) U/L C-Reactive Protein 0.36 H (0-0.29) mg/dl Total Protein 7.2 (6.4-8.2) gm/dl Albumin 3.4 (3.4-5.0) gm/dl Globulin 3.8 (2.5-4.0) gm/dl Albumin/Globulin Ratio 0.9 (0.9-2) Urine Color Urine Appearance (Clear) Urine pH (4.5-7.5) Ur Specific [place] (1.000-1.030) Urine Protein (Negative) Urine Glucose (UA) (Negative) Urine Ketones (Negative) Urine Blood (Negative) Urine Nitrite (Negative) Urine Bilirubin (Negative) Urine Urobilinogen (Negative) Ur Leukocyte Esterase (Negative) 10/30/20 Range/Units 18:08 WBC (4.8-10.8) K/uL RBC (4.7-6.1) M/uL Hgb (14.0-18.0) g/dL Hct (42-52) % MCV (80-100) fL MCH (25-34) pg MCHC (32-36) g/dL RDW Std Deviation (36.4-46.3) fL RDW Coeff of Julissa (11.5-14.5) % Plt Count (130-400) K/uL MPV (7.4-10.4) fL Immature Gran % (Auto) % Neut % (Auto) % Lymph % (Auto) % [place] % (Auto) % Eos % (Auto) % Baso % (Auto) % Neut # (Auto) (1.4-6.5) K/uL Lymph # (Auto) (1.2-3.4) K/uL [place] # (Auto) (0.11-0.59) K/uL Eos # (Auto) (0-0.5) K/uL Baso # (Auto) (0-0.2) K/uL Immature Gran # (Auto) (0.00-0.02) K/uL ESR (0-14) mm/hr Sodium (136-145) mmol/L Potassium (3.5-5.1) mmol/L Chloride (98-107) mmol/L Carbon Dioxide (21-32) mmol/L Anion Gap (3-11) BUN (7-18) mg/dl Creatinine (0.6-1.4) mg/dl Est Cr Clr Drug Dosing ml/min Est GFR ( Amer) Est GFR (Non-Af Amer) BUN/Creatinine Ratio (10-20) Glucose (70-99) mg/dl Calcium (8.5-10.1) mg/dl Total Bilirubin (0.2-1) mg/dl AST (15-37) U/L ALT (12-78) U/L Alkaline Phosphatase (45-117) U/L C-Reactive Protein (0-0.29) mg/dl Total Protein (6.4-8.2) gm/dl Albumin (3.4-5.0) gm/dl Globulin (2.5-4.0) gm/dl Albumin/Globulin Ratio (0.9-2) Urine Color Yellow Urine Appearance Clear (Clear) Urine pH 6.0 (4.5-7.5) Ur Specific [place] 1.018 (1.000-1.030) Urine Protein Negative (Negative) Urine Glucose (UA) Negative (Negative) Urine Ketones Negative (Negative) Urine Blood Negative (Negative) Urine Nitrite Negative (Negative) Urine Bilirubin Negative (Negative) Urine Urobilinogen Negative (Negative) Ur Leukocyte Esterase Negative (Negative) Imaging Data Radiologist's Impression: MRI of the lumbar spine per outside facility reveals a discitis and possible myositis of the L1-L2 region. Blood Pressure Blood Pressure Findings: Normal blood pressure Blood Pressure Disposition: did not require urgent referral MDM Narrative This pt was evaluated and appeared to be in no distress. IV access was obtained and lab work was drawn. Pt was medicated with morphine and zofran for pain and nausea. MR results were reviewed, apparent discitis with possible myositis of the L1-L2 region. Lab work reveals low WBC, normal ESR and slightly elevated CRP. Pt was medicated with IV vanco and IV ceftriaxone and he has not has recent instrumentation. Case was d/w ortho spine and the hospitalist for further management. Impression & Plan Discitis of lumbar region Discharge Plan Visit Data Chief Complaint: Abnormal Labs/Diagnostic Testing Stated Complaint: POST MRI - SENT BY FOR INFECTION ED Provider: Jaye Coronel Discharge Problem: Discitis of lumbar region Patient Disposition: Admitted As Inpatient Discharge Instructions Interventions: ED Discharge Assessment Last Done: 10/30/20 20:43
[2020-10-31] MEDS: ACETAMINOPHEN 325 MG TAB PO PRN ×2 (02:20→07:30)
[2020-10-31] MEDS: FLECAINIDE ACETATE 100 MG TABLET PO SCH (05:37)
[2020-10-31] MEDS ORDERED: Nursing to Pharmacy Communication SCH (05:45)
[2020-10-31] MEDS ORDERED: VANCOMYCIN HCL 1,500 MG in SODIUM CHLORIDE 0.9% 500 ML IV SCH (06:00)
[2020-10-31 06:39] LABS: Hematocrit (blood only) 38.8 % (42-52); Hemoglobin 13.3 g/dL (14.0-18.0); Mean Corpuscular Hemoglobin 33.3 pg (25-34); Mean Corpuscular Hgb Conc 34.3 g/dL (32-36); Mean Corpuscular Volume 97.2 fL (80-100); Mean Platelet Volume 10.5 fL (7.4-10.4); Platelet Count 175 K/uL (130-400); RDW Standard Deviation 45.9 fL (36.4-46.3); Red Blood Count 3.99 M/uL (4.7-6.1); White Blood Count 5.34 K/uL (4.8-10.8)
[2020-10-31 07:14] LABS: BUN Creatinine Ratio 18.5 (10-20); Calcium 8.3 mg/dl (8.5-10.1); Creatinine Clr Calc Pharmacy 78.7 ml/min; Est GFR (African American) 88.8; Est GFR (Non-African American) 76.6
--- NOTE | 2020-10-31 07:52 | Orthopedic Consultation ---
Date of Consultation October 31, 2020 Assessment & Plan (1) Discitis of lumbar region: Patient presents with radiographic images consistent with discitis. I have reviewed the films with Dr. Macedo and believe at this point medical management is required. At some point he may choose to have his spinal stenosis addressed but would not attempt to do this acutely. There is no indication for surgical debridement at this point as there is no neurologic compromise. Once his discitis has been managed referral to pain management for probable epidural injections would be recommended. There are any other questions or concerns please contact our service. History of Present Illness Attending Physician: Thiago Mckenzie MD History of Present Illness Patient is a pleasant 85-year-old male who presented to the emergency room yesterday after having an outpatient MRI. He states he has a history significant for spinal stenosis that has had for years. Approximately 3 weeks ago his symptoms increased significantly and classically has pain that goes from the knee down to the ankle on the right then he started getting symptoms in the left leg as well. The MRI was read as possible discitis and he was sent to the emergency room. He is continued to have lower back pain as well as left and right leg pain. Its not intolerable at this point. He really has not had much in the way of treatments for his lower back. He has not had any recent injections. He denies any fevers or chills. Allergies Allergy/AdvReac Type Severity Reaction Status Date / Time gabapentin Allergy Unknown Unknown Verified 10/30/20 19:12 apixaban AdvReac Unknown Hematuria Verified 10/30/20 19:12 lisinopril AdvReac Unknown Tachycardia Verified 10/30/20 19:12 Home Medications Medication Instructions Recorded Confirmed Type amlodipine 5 mg PO HS 07/08/18 10/30/20 History aspirin [Aspirin Low Dose] 81 mg PO DAILY 07/08/18 10/30/20 History desonide 1 applic TOPICAL DIRECTED PRN 07/08/18 10/30/20 History ketoconazole 1 applic TOPICAL 2XWK 07/08/18 10/30/20 History lorazepam 1 mg PO HS PRN 07/08/18 10/30/20 History losartan 25 mg PO HS 07/08/18 10/30/20 History saozvhtc-vpydymnxs-UQ 2 drp OTB DAILY PRN 07/08/18 10/30/20 History psyllium husk [Metamucil] 1 tsp PO DAILY PRN 07/08/18 10/30/20 History simvastatin 20 mg PO HS 07/08/18 10/30/20 History acetaminophen 650 mg PO QID PRN 10/30/20 10/30/20 History flecainide 100 mg PO Q12H 10/30/20 10/30/20 History melatonin 10 mg PO HS 10/30/20 10/30/20 History Patient History Medical History Dyslipidemia History of colon cancer History of prostate cancer Hypertension Paroxysmal atrial fibrillation Spinal stenosis Surgical History History of partial colectomy History of transurethral resection of prostate Family History Brother Prostate cancer Social History Smoking Status: Former smoker Second Hand Exposure: No; Do You Dip or Chew Tobacco: No; Tobacco Cessation Education Requested by Patient: No Hx Alcohol Use: Yes Alcohol type: beer and wine Alcohol Intake Frequency: Monthly or Less Hx Substance Use: No Preferred Language: Czech Communication Ability: Effective Back Sewer Required: No Beliefs That Will Affect Care: None Current Living Situation: Spouse Other Information That Helps Us Care for You: No Feels Safe at Home: Yes Safety Concerns: Feels Safe At This Time Assistive Devices: Cane Physical Exam Physical Exam: On exam the patient is resting in bed. He is alert and oriented. He does not appear to be in any distress. He has full range of kevin on hips and knees. His lower extremity motor exam reveals no focal atrophy strength 5 out of 5 to detailed muscle testing. Sensation is intact to light touch. Skin is intact. Abdomen soft nontender calves are supple nontender. Results & Data ([facility]) Vital Signs (Past 12 Hours) Vital Signs Temp Pulse Resp BP Pulse Ox 10/30/20 22:55 36.4 C L 73 19 133/77 93 10/30/20 21:05 36.5 C 71 18 168/81 H 96 10/30/20 20:33 70 14 133/79 95 Diagnostic Findings Open MRI of the lumbar spine performed 611 on 10/30/2020 was reviewed. This reveals multilevel spondylosis. There is near complete to space collapse at L4- 5. There is a high signal in the anterior portion of the disc space at L1-2. There is also infiltration of the left psoas muscle group which appears to be inflammatory.
[2020-10-31] MEDS ORDERED: ASPIRIN 81 MG ECTAB PO SCH (09:00)
--- NOTE | 2020-10-31 09:36 | Pharmacy Report ---
Pharmacy Abx Dose Short Note - Date of Service October 31, 2020 - Assessment & Plan Assessment 85 year old M receiving vancomycin/Rocephin for treatment of discitis Day # 2 of antimicrobial therapy. Plan Vancomycin * population pharmacokinetics suggest half-life of 10 hours with elimination constnat of 0.068 hr-1 * vancomycin 2250 mg x 1 (20 mg/kg) followed by vancomycin 1500 mg (13.4 mg/kg) IV q12 hours * trough prior to 0600 dose on 11/01/20 * expect some accumulation secondary to body habitus. Pharmacy will continue to follow and will adjust dose/frequency as necessary. Thank you.
--- NOTE | 2020-10-31 12:30 | Hospitalist Progress Note ---
Date of Service October 31, 2020 Assessment & Plan (1) Discitis of lumbar region: -Hospital day #1 -Patient referred to ED by PCP after outpatient MRI showed evidence of L1-L2 discitis -Remains afebrile, WBC 5.3K -CRP 0.36, ESR 14 -On IV ceftriaxone and IV Vanco (day #2) -No growth to date on blood cultures -Case discussed with Dr. Macedo - doubt infectious discitis given lack of fever, leukocytosis, and no to minimal elevation in inflammatory markers -Discontinue antibiotics, discharge home today with close follow-up with Dr. Macedo on 11/04 in the office -Follow results of blood cultures (2) Paroxysmal atrial fibrillation: -Rhythm controlled on flecainide, will continue -Not anticoagulated secondary to rectal bleeding and hematuria (3) Hypertension: -BP controlled, continue amlodipine and losartan (4) DVT prophylaxis: -SCDs Admission and Anticipated Discharge Date Admission Date: October 30, 2020 Supervising Physician Co-Signing Physician Notes Attending Addendum: care coordinated with XOCHILT myers please refer to her notes for full details, I agree with her notes patient seen and examined, records reviewed by myself as well on exam, patient seen sitting up in bed, comfortable, not in distress States back pain is better, as well as left upper leg pain No problems with ambulation no other symptoms VS noted and reviewed oriented x 3 , not in distress, speaks in sentences with no effort nor accessory muscle use normal rate, regular rhythm, no murmurs clear breath sounds bilaterally non distended, soft, nontender no bipedal edema, erythema, warmth Back-no erythema/warmth/tenderness no neuro deficits WBC 5.3 Hg 13.3 Crea 0.92 ASSESSMENT AND PLAN Left-sided sciatica Discitis unlikely due to absence of fever, leukocytosis, severe back pain Discussed with Ortho, follow-up closely next week as an outpatient will Follow-up blood cultures other diagnoses and plan of care as per XOCHILT Mckenzie MD Subjective Follow-up for possible discitis. Patient seen and examined. Reports back pain and left leg pain improving. Afebrile. Denies chills. No chest pain or shortness of breath. Denies abdominal pain or nausea. Ambulating in the room independently with his cane. Physical Exam Constitutional: WD/WN, vitals as above no acute distress Sitting on the edge of the bed Respiratory: normal respiratory effort, lungs clear to auscultation Cardiovascular: Rate/Rhythm: regular rate and regular rhythm Vessels: normal peripheral pulses Extremities: no edema Musculoskeletal: Extremities: strength 5/5 throughout No spinal or paraspinal tenderness Psychiatric: Orientation: alert and oriented x 3 Results & Data Results & Data ([facility]) Vital Signs (Past 12 Hours) Vital Signs Temp Pulse Resp BP Pulse Ox 10/31/20 07:05 36.3 C L 72 19 128/73 94 Laboratory Results Short CBC 10/30/20 10/31/20 Range/Units 17:49 05:42 WBC 4.71 L 5.34 (4.8-10.8) K/uL Hgb 14.2 13.3 L (14.0-18.0) g/dL Hct 41.6 L 38.8 L (42-52) % Plt Count 194 175 (130-400) K/uL BMP 10/30/20 10/31/20 17:49 05:42 Sodium 141 141 Potassium 4.1 4.0 Chloride 108 H 111 H Carbon Dioxide 26 26 BUN 20 H 17 Creatinine 1.06 0.92 Glucose 92 84 Calcium 9.2 8.3 L Liver Function 10/30/20 Range/Units 17:49 Total Bilirubin 0.5 (0.2-1) mg/dl AST 16 (15-37) U/L ALT 30 (12-78) U/L Alkaline Phosphatase 115 (45-117) U/L Albumin 3.4 (3.4-5.0) gm/dl Urine 10/30/20 Range/Units 18:08 Urine Color Yellow Urine Appearance Clear (Clear) Urine pH 6.0 (4.5-7.5) Ur Specific [place] 1.018 (1.000-1.030) Urine Protein Negative (Negative) Urine Glucose (UA) Negative (Negative)
--- NOTE | 2020-10-31 13:25 | Discharge Summary ---
Date of Service October 31, 2020 Admission HPI Per Admitting Provider 85-year-old male with PMH dyslipidemia, HTN, paroxysmal atrial fibrillation, history of prostate cancer, history of colon cancer, scalp stenosis, and other problems listed below who presents to the ED by referral PCP for evaluation of abnormal MRI. Patient reports a longstanding history of spinal stenosis with chronic right leg radiculopathy. Over the past few weeks, patient reports developing left thigh pain. Reports pain was initially sharp with ambulation however has now developed into a dull pain with ambulation. Reports chronic problems with balance as well however denies any numbness or tingling to lower extremities. Denies loss of bowel or bladder function. Patient reported the symptoms to PCP and outpatient MRI was ordered for today. No fevers or chills. Denies chest pain or shortness of breath. No lightheadedness, dizziness, diaphoresis, syncopal events. No urinary symptoms. Outpatient MRI showed findings of L1-L2 discitis with associated myositis. In the ED, patient is hemodynamically stable. He is afebrile, WBC 4.7K, CRP 0.36, ESR 14. Patient was given IV ceftriaxone, IV Vanco, IV Zofran, IV morphine. Admission Exam Per Admitting Provider Constitutional: WD/WN, vitals as above Eyes: PERRL, conjunctivae normal, anicteric sclerae ENMT: external ear and nose normal, oropharynx normal Respiratory: normal respiratory effort, lungs clear to auscultation Cardiovascular: Rate/Rhythm: regular rate and regular rhythm Vessels: normal peripheral pulses Extremities: no edema Gastrointestinal (Abdomen): normal bowel sounds, soft, nontender, no hepatosplenomegaly Musculoskeletal: no cyanosis or clubbing, extremities motor strength 5/5 Left thigh pain with elevation of LLE Skin: no rashes, warm and dry Neurologic: PERRL, EOMI, accommodation nl, no face palsy, no dysarthria Psychiatric: A+Ox3, euthymic affect Principal Diagnosis Discitis Discharge Data Allergies Allergy/AdvReac Type Severity Reaction Status Date / Time gabapentin Allergy Unknown Unknown Verified 10/30/20 19:12 apixaban AdvReac Unknown Hematuria Verified 10/30/20 19:12 lisinopril AdvReac Unknown Tachycardia Verified 10/30/20 19:12 Consultations Spine orthopedics, Dr. Macedo [facility] Course (1) Discitis of lumbar region: -Patient referred to ED by PCP after outpatient MRI showed evidence of L1- L2 discitis -Remains afebrile, WBC 5.3K -CRP 0.36, ESR 14 -Received IV ceftriaxone and IV Vanco (day #2) -No growth to date on blood cultures -Case discussed with Dr. Macedo - doubt infectious discitis given lack of fever, leukocytosis, and no to minimal elevation in inflammatory markers -Discontinue antibiotics, discharge home today with close follow-up with Dr. Macedo on 11/04 in the office -Follow results of blood cultures -Evaluated by PT, no further services needed at this time (2) Paroxysmal atrial fibrillation: -Rhythm controlled on flecainide, will continue -Not anticoagulated secondary to rectal bleeding and hematuria (3) Hypertension: -BP controlled, continue amlodipine and losartan Total Time Total Time Spent Total Time Spent (In Minutes): 35 Discharge Plan Discharge Items Patient Disposition: Home - Self-Care Reason For Visit: DISCITIS Discharge Diagnosis: Discitis, unlikely to be infectious Activity: Resume your previous activity Non-emergency contact: Primary Care Provider Call non-emergency contact if: you have any medication questions, your symptoms worsen, your pain is not controlled and you have a fever Follow-up/Referrals: Akira Macedo DO [Surgeon] - 11/04/20 12:15 pm Joseph Carrasquillo DO [Primary Care Provider] - 11/05/20 3:00 pm Diet: Heart Healthy Addtl Attending Provider Instructions: You were admitted to the hospital for possible discitis (infection in your back). Infection was felt to be less likely according to lab testing. Blood cultures are still pending and you will receive a phone call if there is any abnormality. Continue to take all of your home medications as prescribed. Go to follow up appointments with Dr. Macedo and Dr. Carrasquillo as scheduled. Pending Studies at Discharge: Yes Studies:: Blood cultures Stand-Alone Forms: My [employer], Smoking Cessation Medications and DC Order Prescriptions: Continued amlodipine 5 mg tablet 5 mg PO HS RF: 0 lorazepam 1 mg tablet 1 mg PO HS PRN (Reason: Sleep) RF: 0 ketoconazole 2 % shampoo 1 applic Topical 2XWK RF: 0 aspirin [Aspirin Low Dose] 81 mg Tablet,Delayed Release (Dr/Ec) 81 mg PO DAILY RF: 0 desonide 0.05 % Ointment 1 applic TOPICAL DIRECTED PRN (Reason: Dry/Scaly Skin) RF: 0 simvastatin 20 mg tablet 20 mg PO HS RF: 0 losartan 25 mg tablet 25 mg PO HS RF: 0 wytyfyay-ewysqzvya-IU 3.5-10,000-1 mg/mL-unit/mL-% drops,suspension 2 drp OTB DAILY PRN (Reason: Itchy Ear(s)) RF: 0 Metamucil 3.4 gram/5.4 gram Powder 1 tsp PO DAILY PRN (Reason: Constipation) RF: 0 flecainide 100 mg tablet 100 mg PO Q12H RF: 0 melatonin 10 mg Tablet 10 mg PO HS RF: 0 acetaminophen 325 mg Tablet 650 mg PO QID PRN (Reason: Pain) RF: 0 Discharge Orders: Discharge Order (Routine); Ordered 10/31/20 Ordered By: Merissa Greene Admission Data Admit Date/Time: 10/30/20 19:39 Attending Provider: Thiago Mckenzie Admit Provider: Papi Ambrosio Primary Care Provider: Joseph Carrasquillo Other Providers: Papi Ambrosio ; Akira Macedo Other Interventions: Discharge Summary Assessment (RN) Last Done: 10/31/20 15:44
--- NOTE | 2020-10-31 17:00 | Communication Note ---
Date of Service: October 31, 2020 Code 44 attestation: By CMS guidelines, a determination that the admission or continued stay is not medically necessary has been made by a member of the UR committee and a physician for this hospital stay, therefore a Code 44 will be completed and the Inpatient admission will be changed to outpatient. Stephania Marmolejo DO [facility] Registrar
[2020-10-31] MEDS ORDERED: cefTRIAXone SODIUM 2,000 MG in DEXTROSE 5% 50 ML IV SCH (18:00)
[2020-10-31] MEDS ORDERED: FLECAINIDE ACETATE 100 MG TABLET PO SCH (18:00)
== END 2020-10-31 16:17 | disposition home or self-care (01) ==
LOC: ED 16:25 → 3W 19:39 → SUATTDRO 19:39 → INTOOBSV 19:39 → 3W 20:43